=== PATIENT | male | born 1960 | race Caucasian/White ===

== ENCOUNTER → 2020-07-31 07:33 | Outpatient (CLI) | payer MEDICAID ==
[~2020-07-31 07:33] MED LIST: NAPROSYN500 MG PO; OMEPRAZOLE20 M1; VITAMIN D 22000 UNIT
[2020-07-31 09:06] VITALS: BMI 20.5
== END | disposition home or self-care (01) ==
LOC: D.US 07:33
PROVIDERS: ATTEND Nurse Practitioner
DX: K40.30 Unilateral inguinal hernia, with obstruction, without gangrene, not specified as recurrent (principal)

== ENCOUNTER 2020-07-31 09:03 | Emergency (ER) | payer MEDICAID ==
[~2020-07-31] VITALS: Ht 172.7 cm; Wt 61.4 kg
[2020-07-31 09:06] VITALS: BP 128/98; Ht 172.7 cm; Wt 61.4 kg
[2020-07-31] MEDS ORDERED: OMEPRAZOLE20 M1 (09:09)
[2020-07-31] MEDS ORDERED: VITAMIN D 22000 UNIT (09:09)
[2020-07-31] MEDS ORDERED: NAPROSYN500 MG PO (11:51)
== END 2020-07-31 12:01 | disposition home or self-care (01) ==
LOC: D.ER 09:03
DX: K40.90 Unilateral inguinal hernia, without obstruction or gangrene, not specified as recurrent (principal); I10 Essential (primary) hypertension; K21.9 Gastro-esophageal reflux disease without esophagitis; Z72.0 Tobacco use